=== PATIENT | female | born 1990 | race American Indian/Alaskan Native ===

== ENCOUNTER 2016-09-28 00:06 | Emergency (ER) | payer OTHER, BC ==
[2016-09-28 00:16] VITALS: BP 125/81
== END 2016-09-28 00:14 | disposition left against medical advice (07) ==
LOC: ED 00:06
DX: M54.5 Low back pain (principal); Z53.21 Procedure and treatment not carried out due to patient leaving prior to being seen by health care provider; V49.49XA Driver injured in collision with other motor vehicles in traffic accident, initial encounter

== ENCOUNTER 2018-12-29 15:59 | Emergency (ER) | payer BC ==
[2018-12-29] MEDS ORDERED: ATARAX PO ONE (16:26)
[2018-12-29] MEDS ORDERED: VISTARIL ONE (16:46)
[2018-12-29 17:50] LABS: Basophils # (Auto) 0.1 K/mm3 (0.0-0.1); Basophils % (Auto) 0.8 % (0.0-1.8); Eosinophils # (Auto) 0.3 K/mm3 (0.0-0.4); Eosinophils % (Auto) 3.9 % (0.0-4.3); Hematocrit 38.6 % (30.3-42.9); Hemoglobin 13.2 gm/dl (10.1-14.3); Lymphocytes # (Auto) 1.5 K/mm3 (1.2-5.4); Lymphocytes % (Auto) 21.1 % (13.4-35.0); Mean Corpuscular HGB Conc 34 % (30-34); Mean Corpuscular Volume 92 fl (79-97); Monocytes # (Auto) 0.6 K/mm3 (0.0-0.8); Monocytes % (Auto) 8.4 % (0.0-7.3); Platelet Count 314 K/mm3 (140-440); Red Blood Count 4.19 M/mm3 (3.65-5.03); Red Cell Distribution Width 12.4 % (13.2-15.2)
[2018-12-29 18:16] LABS: Alanine Aminotransferase 25 units/L (7-56); Albumin 4.6 g/dL (3.9-5); BUN/Creatinine Ratio 21; Blood Urea Nitrogen 15 mg/dL (7-17); Calcium 9.7 mg/dL (8.4-10.2); Hemolysis Index 4
[2018-12-29 19:32] LABS: Amphetamine Screen,Urine PRESUMPTIVE NEGATIVE; Benzodiazepines Screen,Urine PRESUMPTIVE NEGATIVE; Cocaine Screen,Urine PRESUMPTIVE NEGATIVE; Methadone Screen,Urine PRESUMPTIVE NEGATIVE; Opiate Screen,Urine PRESUMPTIVE NEGATIVE
[2018-12-29 19:58] LABS: Cannabinoid Screen,Urine PRESUMPTIVE POSITIVE
--- NOTE | 2018-12-29 21:19 | Emergency Department Report ---
HPI - General Chief Complaint: Anxiety Time Seen by Provider: 12/29/18 16:24 - HPI HPI: 28-year-old female presents to the emergency department with complaint of anxiety and a panic attack. The patient says that this has been happening just about every 2 weeks. She says that she has been anxious about "stress." The patient was at work and says that she was unable to calm herself down so she just walked out of work and drove herself to the emergency department to be seen. She did not take anything for her symptoms prior to arrival. There is some mention, through triage, that the patient's anxiety was so bad that she had some suicidal ideations earlier in the day but also mentioned that it had resolved and she denies any current suicidal ideations. She denies any homicidal ideations or any hallucinations. She does not have a primary care physician or any psychiatrist or therapist but says "I am looking for one." ED Past Medical Hx - Past Medical History Previous Medical History?: No - Surgical History Past Surgical History?: No - Social History Smoking Status: Never Smoker Substance Use Type: None - Medications Home Medications: Home Medications Medication Instructions Recorded Confirmed Last Taken Type Acetaminophen/Codeine 1 tab PO Q6H PRN #20 tab 02/15/14 Unknown Rx [Acetaminophen-Codeine #3 TAB] Cyclobenzaprine [Flexeril 10 MG 10 mg PO TID PRN #20 tablet 02/15/14 Unknown Rx TAB] Naproxen [Naprosyn] 500 mg PO BID #30 tablet 02/15/14 Unknown Rx ALPRAZolam [Xanax TAB] 0.5 mg PO BID PRN #6 tab 12/29/18 Unknown Rx ED Review of Systems ROS: Stated complaint: ANXIETY Other details as noted in HPI Comment: All other systems reviewed and negative Constitutional: denies: chills, fever Respiratory: denies: cough, shortness of breath Cardiovascular: denies: chest pain, palpitations Gastrointestinal: denies: abdominal pain, vomiting Neurological: denies: headache, weakness Psychiatric: anxiety. denies: auditory hallucinations, visual hallucinations, homicidal thoughts, suicidal thoughts Physical Exam - Physical Exam Vital Signs: Vital Signs 12/29/18 16:40 Temperature 98.1 F Pulse Rate 104 H Respiratory 20 Rate Blood Pressure 129/96 O2 Sat by Pulse 100 Oximetry Physical Exam: GENERAL: The patient is well-developed well-nourished. HENT: Normocephalic. Atraumatic. Patient has moist mucous membranes. EYES: Extraocular motions are intact. NECK: Supple. Trachea is midline. CHEST/LUNGS: Clear to auscultation. There is no respiratory distress noted. HEART/CARDIOVASCULAR: Regular. There is no tachycardia. There is no murmur. ABDOMEN: There is no abdominal distention. SKIN: Skin is warm and dry. NEURO: The patient is awake, alert, and oriented. The patient is cooperative. The patient has no focal neurologic deficits. The patient has normal speech. MUSCULOSKELETAL: There is no tenderness or deformity. There is no evidence of acute injury. PSYCH: Patient is calm and appropriate. ED Course Vital Signs 12/29/18 16:40 Temperature 98.1 F Pulse Rate 104 H Respiratory 20 Rate Blood Pressure 129/96 O2 Sat by Pulse 100 Oximetry ED Medical Decision Making - Lab Data Result diagrams: 12/29/18 17:20 12/29/18 17:20 - Medical Decision Making This patient presents to the emergency department with some anxiety and a previo us panic attack that brought her into the emergency department. At time of my examination she is calm and appropriate. Patient says that she was feeling anxious about some nonspecific stressors in her life. She denies any suicidal or homicidal ideations or any hallucinations. It sounds like the patient was very concerned about the previous panic attack that she was not able to get herself out of without coming into the emergency department. She says that this began happening about every 2 weeks for the past few months. The patient was seen by the psychiatric rn advice who agrees with my assessment that the patient does not appear to meet criteria to be made a 1013 or require involuntary inpatient psychiatric admission. However the patient will definitely benefit from some outpatient referrals for psychiatry or psychology. I have given the patient a prescription for a very small amount of low dose Xanax to take if she starts having some increased anxiety before and can get to a panic attack. However the patient has any worsening of her symptoms, thoughts of harming herself or others, then the patient will need to call 911 or get back to the emergency Department immediately. The patient understands and agrees to the plan. Vital signs stable throughout her ED course. - Differential Diagnosis anxiety, panic disorder, depression Critical Care Time: No Critical care attestation.: If time is entered above; I have spent that time in minutes in the direct care of this critically ill patient, excluding procedure time. ED Disposition Clinical Impression: Anxiety, Panic attack Disposition: DC-01 TO HOME OR SELFCARE Is pt being admited?: No Condition: Stable Instructions: Anxiety (ED) Additional Instructions: Please follow up with the [facility] or any psychiatrist or psychologist within the next few days. Return to the emergency Department with any worsening of her symptoms or any acute distress. I have given him a prescription for a very small amount of low dose Xanax to take to treat your anxiety. This medication can be sedating and therefore should not be taken prior to driving, working, being responsible for children, it cannot be mixed with alcohol of any quantity. Prescriptions: ALPRAZolam [Xanax TAB] 0.5 mg PO BID PRN #6 tab PRN Reason: Anxiety Referrals: [facility] [Outside] - [place] Forms: Work/School Release Form(ED) Time of Disposition: 21:22
[2018-12-29 22:08] VITALS: BP 113/85
== END 2018-12-29 22:07 | disposition home or self-care (01) ==
LOC: ED 15:59
DX: F41.0 Panic disorder [episodic paroxysmal anxiety] (principal); Z91.010 Allergy to peanuts; Z91.013 Allergy to seafood; Z79.899 Other long term (current) drug therapy
CPT/HCPCS: 36415; 80053; 80307; 85025; 99284; Q0177

== ENCOUNTER 2019-04-25 17:15 | Emergency (ER) | payer BC ==
[2019-04-25] MEDS ORDERED: TETANUS,DIPH,PERTUSS(ACELL) VACCINE 0.5 ML SYRINGE IM ONE (17:19)
--- NOTE | 2019-04-25 17:21 | Event Note ---
ED Screening Note Date of service: 04/25/19 Time: 17:19 ED Screening Note: 28 y/o female comes in for right index laceration just prior to arrival. This initial assessment/diagnostic orders/clinical plan/treatment(s) is/are subject to change based on patients health status, clinical progression and re- assessment by fellow clinical providers in the ED. Further treatment and workup at subsequent clinical providers discretion. Patient/guardian urged not to elope from the ED as their condition may be serious if not clinically assessed and managed. Initial orders include: Boostix
[2019-04-25 17:22] VITALS: BP 126/62
[2019-04-25] MEDS ORDERED: LIDOCAINE-MPF (1%) 10 MG/1 ML VIAL 5 ML INFILTRATI ONE (18:23)
[2019-04-25] MEDS ORDERED: IBUPROFEN 600 MG TAB PO ONE (18:23)
[2019-04-25] MEDS ORDERED: LORazepam 1 MG TAB PO ONE (19:28)
[2019-04-25] MEDS ORDERED: LORazepam 1 MG TAB ONE (19:29)
--- NOTE | 2019-04-25 21:00 | Emergency Department Report ---
- General Chief Complaint: Wound/Laceration Stated Complaint: R FINGER LACERATION Time Seen by Provider: 04/25/19 17:19 Source: patient Mode of arrival: Ambulatory Limitations: No Limitations - History of Present Illness Initial Comments: Patient is a 28-year-old -[place] female with no past medical history who presents to the ED with painful bleeding right index finger laceration after she accidentally cut right index finger when scuffling over the jewelry with her girlfriend about 2 hours. Patient states that the bleeding has not been well controlled. Patient admits to the fact that she has not had a tetanus vaccination. Patient denies numbness or tingling or weakness of the right hand right index finger. -: Sudden, hour(s) (2) Location: other (right index finger) Extremity Location: Right: Hand (right index finger laceration) Place: home Patient Tetanus UTD: No Context: accidental Associated Symptoms: pain. denies: loss of feeling/numbness, suspect foreign body present, unable to move injured part, weakness followed by dizziness, nausea/vomiting, fever - Related Data Previous Rx's Medication Instructions Recorded Last Taken Type Acetaminophen/Codeine 1 tab PO Q6H PRN #20 tab 02/15/14 Unknown Rx [Acetaminophen-Codeine #3 TAB] Cyclobenzaprine [Flexeril 10 MG 10 mg PO TID PRN #20 tablet 02/15/14 Unknown Rx TAB] Naproxen [Naprosyn] 500 mg PO BID #30 tablet 02/15/14 Unknown Rx ALPRAZolam [Xanax TAB] 0.5 mg PO BID PRN #6 tab 12/29/18 Unknown Rx Ibuprofen [Motrin] 800 mg PO Q8HR PRN #24 tablet 04/25/19 Unknown Rx Sulfamethoxazole/Trimethoprim 1 each PO Q12H #20 tablet 04/25/19 Unknown Rx [Bactrim DS TAB] Allergies Allergy/AdvReac Type Severity Reaction Status Date / Time cashew nut Allergy Swelling Verified 04/25/19 17:16 Fish Containing Products Allergy Swelling Verified 04/25/19 17:16 ED Review of Systems ROS: Stated complaint: R FINGER LACERATION Other details as noted in HPI Constitutional: denies: chills, fever Eyes: denies: eye pain, eye discharge, vision change ENT: denies: ear pain, throat pain Respiratory: denies: cough, shortness of breath, wheezing Cardiovascular: denies: chest pain, palpitations Endocrine: no symptoms reported Gastrointestinal: denies: abdominal pain, nausea, diarrhea Genitourinary: denies: urgency, dysuria, discharge Musculoskeletal: arthralgia (painful right index finger due to a bleeding laceration on the palmar side). denies: back pain, joint swelling Skin: other (bleeding right index finger laceration with pain). denies: rash, lesions Neurological: denies: headache, weakness, paresthesias Psychiatric: denies: anxiety, depression Hematological/Lymphatic: denies: easy bleeding, easy bruising ED Past Medical Hx - Past Medical History Previous Medical History?: No - Surgical History Past Surgical History?: No - Social History Smoking Status: Never Smoker Substance Use Type: None - Medications Home Medications: Home Medications Medication Instructions Recorded Confirmed Last Taken Type Acetaminophen/Codeine 1 tab PO Q6H PRN #20 tab 02/15/14 Unknown Rx [Acetaminophen-Codeine #3 TAB] Cyclobenzaprine [Flexeril 10 MG 10 mg PO TID PRN #20 tablet 02/15/14 Unknown Rx TAB] Naproxen [Naprosyn] 500 mg PO BID #30 tablet 02/15/14 Unknown Rx ALPRAZolam [Xanax TAB] 0.5 mg PO BID PRN #6 tab 12/29/18 Unknown Rx Ibuprofen [Motrin] 800 mg PO Q8HR PRN #24 tablet 04/25/19 Unknown Rx Sulfamethoxazole/Trimethoprim 1 each PO Q12H #20 tablet 04/25/19 Unknown Rx [Bactrim DS TAB] ED Physical Exam - General Limitations: No Limitations General appearance: alert, in no apparent distress - Head Head exam: Present: atraumatic, normocephalic, normal inspection - Eye Eye exam: Present: normal appearance, PERRL, EOMI Pupils: Present: normal accommodation - ENT ENT exam: Present: normal exam, normal orophraynx, mucous membranes moist, TM's normal bilaterally, normal external ear exam - Neck Neck exam: Present: normal inspection, full ROM - Respiratory Respiratory exam: Present: normal lung sounds bilaterally. Absent: respiratory distress, wheezes, rales, rhonchi, chest wall tenderness, accessory muscle use, decreased breath sounds - Cardiovascular Cardiovascular Exam: Present: regular rate, normal rhythm, normal heart sounds. Absent: systolic murmur, diastolic murmur, rubs, gallop - GI/Abdominal GI/Abdominal exam: Present: soft, normal bowel sounds. Absent: tenderness, guarding, rebound, hyperactive bowel sounds - Extremities Exam Extremities exam: Present: normal inspection, full ROM, tenderness (palpable tender right index finger bleeding 3 cm laceration), normal capillary refill. Absent: pedal edema, joint swelling - Back Exam Back exam: Present: normal inspection, full ROM. Absent: CVA tenderness (L), muscle spasm, paraspinal tenderness - Neurological Exam Neurological exam: Present: alert, oriented X3, CN II-XII intact, normal gait, reflexes normal - Psychiatric Psychiatric exam: Present: normal affect, normal mood - Skin Skin exam: Present: warm, dry, intact, normal color, other (Bleeding 3 cm laceration on right index finger). Absent: rash ED Course Vital Signs 04/25/19 04/25/19 17:21 18:29 Temperature 98.3 F Pulse Rate 88 Respiratory 18 18 Rate Blood Pressure 126/62 O2 Sat by Pulse 99 Oximetry - Laceration /Wound Repair Right Palm Finger Wound Location: upper extremity (RIGHT INDEX FINGER LACERATION ON PALMAR SIDE) Wound Length (cm): 3 Wound's Depth, Shape: superficial, irregular Wound Explored: contaminated Irrigated w/ Saline (ccs): 50 Betadine Prep?: Yes Anesthesia: 1% Lidocaine Volume Anesthetic (ccs): 3 Wound Debrided: extensive Wound Repaired With: sutures Suture Size/Type: 4:0, proline Number of Sutures: 7 Layer Closure?: No Sterile Dressing Applied?: Yes Progress: Patient alert to the procedure well and was discharged home on pain medication and antibiotics and advised to return to the ED immediately if symptoms get worse. Otherwise return to the ED in 12-14 days for suture removal. ED Medical Decision Making - Medical Decision Making This is a 28-year-old female who presented to the ED with bleeding painful right index finger laceration. In the ED: Patient is alert and oriented 3 and is not in distress. Patient was treated for pain in the ED and also received tetanus booster vaccination. The right index finger laceration was cleaned thoroughly and sutured protocol. Patient tolerated the procedure well. The wound was dressed appropriately. The patient discharged home on antibiotics and pain medications and advised to return to the ED immediately if symptoms get worse, otherwise return to the ED in 12-14 days for suture removal. - Differential Diagnosis FINGER LACERATION; ABRASIONS; PUNCTURE WOUND Critical care attestation.: If time is entered above; I have spent that time in minutes in the direct care of this critically ill patient, excluding procedure time. ED Disposition Clinical Impression: Laceration of right index finger w/o foreign body w/o damage to nail Qualifiers: Encounter type: initial encounter Qualified Code(s): S61.210A - Laceration without foreign body of right index finger without damage to nail, initial encounter Disposition: TO HOME OR SELFCARE Is pt being admited?: No Does the pt Need Aspirin: No Condition: Stable Instructions: Laceration (ED), Suture Care (ED) Additional Instructions: Take medications with food, drink plenty of fluids and follow-up with your primary care physician in 7-10 days for reevaluation. Return to the ED immediately if symptoms get worse. Otherwise return to the ED or to primary care physician in 12-14 days for suture removal. Prescriptions: Sulfamethoxazole/Trimethoprim [Bactrim DS TAB] 1 each PO Q12H #20 tablet Ibuprofen [Motrin] 800 mg PO Q8HR PRN #24 tablet PRN Reason: Pain , Severe (7-10) Referrals: PRIMARY CARE, [Primary Care Provider] - 3-5 Days Time of Disposition: 20:59 Print Language: ALBANIAN
== END 2019-04-25 21:06 | disposition home or self-care (01) ==
LOC: ED 17:15
DX: S61.210A Laceration without foreign body of right index finger without damage to nail, initial encounter (principal); Z91.018 Allergy to other foods; Z91.013 Allergy to seafood; W22.8XXA Striking against or struck by other objects, initial encounter; Y93.89 Activity, other specified; Y92.009 Unspecified place in unspecified non-institutional (private) residence as the place of occurrence of the external cause; Y99.8 Other external cause status
CPT/HCPCS: 90471; 90715

== ENCOUNTER 2019-05-10 23:27 | Emergency (ER) | payer BC ==
[2019-05-11 04:22] VITALS: BP 135/83
== END 2019-05-11 20:18 | disposition left against medical advice (07) ==
LOC: ED 23:27
DX: Z48.02 Encounter for removal of sutures (principal); Z53.21 Procedure and treatment not carried out due to patient leaving prior to being seen by health care provider

== ENCOUNTER 2020-09-04 15:06 | Emergency (ER) | payer BC, MEDICAID ==
--- NOTE | 2020-09-04 15:42 | Emergency Department Report ---
ED General Adult HPI - General Chief complaint: Laceration/Recheck/Suture Stated complaint: SUTURE REMOVAL Time Seen by Provider: 09/04/20 15:40 Source: patient Mode of arrival: Ambulatory Limitations: No Limitations - History of Present Illness Initial comments: 29-year-old -[place] female patient presents for suture removal today. Patient states she had the sutures placed at [facility] approximately 9 days ago. She denies any pain, drainage from wound, redness, or swelling. Severity scale (0 -10): 0 Associated Symptoms: denies other symptoms - Related Data Previous Rx's Medication Instructions Recorded Last Taken Type Acetaminophen/Codeine 1 tab PO Q6H PRN #20 tab 02/15/14 Unknown Rx [Acetaminophen-Codeine #3 TAB] Cyclobenzaprine [Flexeril 10 MG 10 mg PO TID PRN #20 tablet 02/15/14 Unknown Rx TAB] Naproxen [Naprosyn] 500 mg PO BID #30 tablet 02/15/14 Unknown Rx ALPRAZolam [Xanax TAB] 0.5 mg PO BID PRN #6 tab 12/29/18 Unknown Rx Ibuprofen [Motrin] 800 mg PO Q8HR PRN #24 tablet 04/25/19 Unknown Rx Sulfamethoxazole/Trimethoprim 1 each PO Q12H #20 tablet 04/25/19 Unknown Rx [Bactrim DS TAB] Amoxicillin/Potassium Clav 1 each PO Q12H #20 tablet 11/24/19 Unknown Rx [Augmentin 875-125 Tablet] Butalb/Acetamin/Caff 50-325-40 1 - 2 tab PO Q6HR PRN #15 tab 11/24/19 Unknown Rx [Fioricet 50-325-40] Ibuprofen [Motrin] 600 mg PO Q8H PRN #24 tablet 11/24/19 Unknown Rx Ondansetron [Zofran Odt] 4 mg PO Q6HR PRN #20 tab.rapdis 11/24/19 Unknown Rx Allergies Allergy/AdvReac Type Severity Reaction Status Date / Time cashew nut Allergy Swelling Verified 11/24/19 14:51 Fish Containing Products Allergy Swelling Verified 11/24/19 14:51 ED Review of Systems ROS: Stated complaint: SUTURE REMOVAL Other details as noted in HPI Constitutional: denies: chills, diaphoresis, fever, malaise, weakness Genitourinary: denies: discharge Musculoskeletal: denies: arthralgia Skin: denies: change in color Neurological: denies: numbness, paresthesias ED Past Medical Hx - Past Medical History Previous Medical History?: No - Surgical History Past Surgical History?: No - Social History Smoking Status: Never Smoker Substance Use Type: Marijuana - Medications Home Medications: Home Medications Medication Instructions Recorded Confirmed Last Taken Type Acetaminophen/Codeine 1 tab PO Q6H PRN #20 tab 02/15/14 Unknown Rx [Acetaminophen-Codeine #3 TAB] Cyclobenzaprine [Flexeril 10 MG 10 mg PO TID PRN #20 tablet 02/15/14 Unknown Rx TAB] Naproxen [Naprosyn] 500 mg PO BID #30 tablet 02/15/14 Unknown Rx ALPRAZolam [Xanax TAB] 0.5 mg PO BID PRN #6 tab 12/29/18 Unknown Rx Ibuprofen [Motrin] 800 mg PO Q8HR PRN #24 tablet 04/25/19 Unknown Rx Sulfamethoxazole/Trimethoprim 1 each PO Q12H #20 tablet 04/25/19 Unknown Rx [Bactrim DS TAB] Amoxicillin/Potassium Clav 1 each PO Q12H #20 tablet 11/24/19 Unknown Rx [Augmentin 875-125 Tablet] Butalb/Acetamin/Caff 50-325-40 1 - 2 tab PO Q6HR PRN #15 tab 11/24/19 Unknown Rx [Fioricet 50-325-40] Ibuprofen [Motrin] 600 mg PO Q8H PRN #24 tablet 11/24/19 Unknown Rx Ondansetron [Zofran Odt] 4 mg PO Q6HR PRN #20 tab.rapdis 11/24/19 Unknown Rx ED Physical Exam - General Limitations: No Limitations General appearance: alert, in no apparent distress - Head Head exam: Present: atraumatic, normocephalic - Eye Eye exam: Present: normal appearance - Respiratory Respiratory exam: Absent: respiratory distress - Cardiovascular Cardiovascular Exam: Present: regular rate - Neurological Exam Neurological exam: Present: alert, oriented X3 - Psychiatric Psychiatric exam: Present: normal affect, normal mood - Skin Skin exam: Present: warm, dry, intact, normal color, other (Healing laceration noted to left inner forearm with [address] no surrounding erythema, wound dehiscence, or drainage noted; wound is nontender to palpation). Absent: rash - Procedure Description Procedures done: 9 simple sutures removed from left forearm without difficulty. No wound dehiscence or bleeding noted. Patient tolerated procedure well without any immediate complications. ED Medical Decision Making - Medical Decision Making 29-year-old -[place]ones[place] female patient presents for suture removal today. Patient states she had the sutures placed at [facility] approximately 9 days ago. She denies any pain, drainage from wound, redness, or swelling. Sutures removed successfully without any immediate complications. Discussed continued wound care and strict return precautions in detail with patient who verbalizes understanding. She is to follow-up with her PCP as needed. Patient is well-appearing, her vitals are normal, she is stable for discharge home. Critical care attestation.: If time is entered above; I have spent that time in minutes in the direct care of this critically ill patient, excluding procedure time. ED Disposition Clinical Impression: Visit for suture removal Disposition: DC-01 TO HOME OR SELFCARE Is pt being admited?: No Condition: Stable Instructions: Wound Closure Removal, Care After Referrals: PRIMARY CARE, [Primary Care Provider] - 3-5 Days
== END 2020-09-04 16:30 | disposition home or self-care (01) ==
LOC: ED 15:06
DX: S51.812D Laceration without foreign body of left forearm, subsequent encounter (principal); Z48.02 Encounter for removal of sutures; F12.10 Cannabis abuse, uncomplicated; Z79.1 Long term (current) use of non-steroidal anti-inflammatories (NSAID); Z79.2 Long term (current) use of antibiotics; Z79.899 Other long term (current) drug therapy; Z91.013 Allergy to seafood; Z91.018 Allergy to other foods; X58.XXXD Exposure to other specified factors, subsequent encounter
CPT/HCPCS: 99282

== ENCOUNTER 2020-09-18 15:57 | Emergency (ER) | payer MEDICAID ==
[2020-09-18 16:07] VITALS: BP 132/93
[2020-09-18] MEDS ORDERED: ACETAMINOPHEN 500 MG TAB PO ONE (16:25)
--- NOTE | 2020-09-18 16:29 | Event Note ---
ED Screening Note Date of service: 09/18/20 Time: 16:26 ED Screening Note: 29-year-old -[place] female presents to the emergency room reporting she has several areas of bumps on her right forearm left leg and behind her neck. Patient thinks is allergic reaction to her dupixent and that she had given her injection 2 weeks ago for her eczema. Patient states that the symptoms started 1 week ago. Patient denies any nausea vomiting no fever but had chills. It was noted that patient had elevated temperature of 102.2 in triage. Patient's last menstrual period 09/03/2020. 2 para 2. This initial assessment/diagnostic orders/clinical plan/treatment(s) is/are subject to change based on patients health status, clinical progression and re- assessment by fellow clinical providers in the ED. Further treatment and workup at subsequent clinical providers discretion. Patient/guardian urged not to elope from the ED as their condition may be serious if not clinically assessed and managed. Initial orders include: CBC CMP acetaminophen 1 g ordered for patient.
[2020-09-18 17:05] LABS: Basophils % (Auto) 0.7 % (0.0-1.8); Eosinophils # (Auto) 0.1 K/mm3 (0.0-0.4); Eosinophils % (Auto) 0.7 % (0.0-4.3); Hematocrit 28.6 % (30.3-42.9); Hemoglobin 9.2 gm/dl (10.1-14.3); Lymphocytes # (Auto) 0.9 K/mm3 (1.2-5.4); Lymphocytes % (Auto) 11.4 % (13.4-35.0); Mean Corpuscular HGB Conc 32 % (30-34); Mean Corpuscular Volume 73 fl (79-97); Monocytes # (Auto) 0.6 K/mm3 (0.0-0.8); Monocytes % (Auto) 7.7 % (0.0-7.3); Platelet Count 449 K/mm3 (140-440); Red Blood Count 3.93 M/mm3 (3.65-5.03); Red Cell Distribution Width 18.3 % (13.2-15.2)
[2020-09-18 17:08] LABS: Alanine Aminotransferase 12 units/L (7-56); Albumin 3.6 g/dL (3.9-5); Blood Urea Nitrogen 7 mg/dL (7-17); Calcium 8.6 mg/dL (8.4-10.2); Hemolysis Index 3
[2020-09-18 17:09] LABS: BUN/Creatinine Ratio 10
[2020-09-18] MEDS ORDERED: dexAMETHasone 20 MG/5 ML VIAL IM ONE (18:29)
--- NOTE | 2020-09-18 18:34 | Emergency Department Report ---
ED Rash HPI - HPI Chief Complaint: Skin Rash Stated Complaint: ALLERGIC REACTION Time Seen by Provider: 09/18/20 18:28 Duration: 3 weeks Location: Upper Extremities Suspected Cause: Medication Rash Symptoms: Yes Fever, No Itching, No Facial Swelling, No Tongue/Oral Swell ing, No Breathing Difficulties, No Choking Sensation, No Wheezing/Dyspnea, No Peeling, No Blistering, No Lightheaded, No Malaise, No Myalgias Severity: moderate Other History: this is a 29-year-old female with a history of eczema who currently started taking Dupixent for her atopic dermatitis. Patient states that she began taking it 3 Months ago. Patient states that she has noticed the red painful mass 2-3 times prior. Did resolve on its own. Patient states this time around she noticed more lesions and it is bigger and is not resolving. ED Review of Systems ROS: Stated complaint: ALLERGIC REACTION Other details as noted in HPI Comment: All other systems reviewed and negative ED Past Medical Hx - Past Medical History Additional medical history: eczema - Surgical History Past Surgical History?: No - Social History Smoking Status: Never Smoker Substance Use Type: Marijuana - Medications Home Medications: Home Medications Medication Instructions Recorded Confirmed Last Taken Type Acetaminophen/Codeine 1 tab PO Q6H PRN #20 tab 02/15/14 Unknown Rx [Acetaminophen-Codeine #3 TAB] Cyclobenzaprine [Flexeril 10 MG 10 mg PO TID PRN #20 tablet 02/15/14 Unknown Rx TAB] Naproxen [Naprosyn] 500 mg PO BID #30 tablet 02/15/14 Unknown Rx ALPRAZolam [Xanax TAB] 0.5 mg PO BID PRN #6 tab 12/29/18 Unknown Rx Sulfamethoxazole/Trimethoprim 1 each PO Q12H #20 tablet 04/25/19 Unknown Rx [Bactrim DS TAB] Amoxicillin/Potassium Clav 1 each PO Q12H #20 tablet 11/24/19 Unknown Rx [Augmentin 875-125 Tablet] Butalb/Acetamin/Caff 50-325-40 1 - 2 tab PO Q6HR PRN #15 tab 11/24/19 Unknown Rx [Fioricet 50-325-40] Ibuprofen [Motrin] 600 mg PO Q8H PRN #24 tablet 11/24/19 Unknown Rx Ondansetron [Zofran Odt] 4 mg PO Q6HR PRN #20 tab.rapdis 11/24/19 Unknown Rx Ibuprofen [Motrin 800 MG tab] 800 mg PO Q8HR PRN #40 tablet 09/18/20 Unknown Rx cephALEXin [Keflex] 500 mg PO Q12HR #14 cap 09/18/20 Unknown Rx hydrOXYzine HCL [Atarax] 25 mg PO Q12HR PRN #10 tablet 09/18/20 Unknown Rx predniSONE [Deltasone] 20 mg PO QDAY #5 tab 09/18/20 Unknown Rx Rash Exam - Exam General: Vital signs noted. No distress. Alert and acting appropriately. HEENT: No Periorbital Edema, No Conjuctival Injection, No Chemosis, No Perioral Edema, No Tongue Edema, No Uvular Edema, No Compromised Airway, No Drooling Lungs: Yes Good Air Exchange (Normal Breath Sounds), No Wheezes, No Ronchi, No Stridor, No Cough, No Labored Respirations, No Retractions, No Use of Accessory Muscles, No Other Abnormal Lung Sounds Heart: Yes Regular, No Murmur Skin: Yes Tenderness, Yes Erythema, Yes Other (There were 3 erythematous 1cm to 3 cm tender cellulitis lesions on the right lower arm.), No Urticarial Rash, No Maculopapular Rash, No Morbilliform rash, No Bulla(e), No Excoriations, No Weeping, No Edema, No Encrustations Other: Positive: Abdomen Normal, Neurologic Normal, Musculoskeletal Normal ED Course Vital Signs 09/18/20 16:03 Temperature 102.2 F H Pulse Rate 90 Respiratory 17 Rate Blood Pressure 132/93 [Left] O2 Sat by Pulse 100 Oximetry ED Medical Decision Making - Lab Data Result diagrams: 09/18/20 16:34 09/18/20 16:34 Laboratory Last Values WBC 7.5 K/mm3 (4.5-11.0) 09/18/20 16:34 RBC 3.93 M/mm3 (3.65-5.03) 09/18/20 16:34 Hgb 9.2 gm/dl (10.1-14.3) L 09/18/20 16:34 Hct 28.6 % (30.3-42.9) L 09/18/20 16:34 MCV 73 fl (79-97) L 09/18/20 16:34 MCH 23 pg (28-32) L 09/18/20 16:34 MCHC 32 % (30-34) 09/18/20 16:34 RDW 18.3 % (13.2-15.2) H 09/18/20 16:34 Plt Count 449 K/mm3 (140-440) H 09/18/20 16:34 Lymph % (Auto) 11.4 % (13.4-35.0) L 09/18/20 16:34 [place] % (Auto) 7.7 % (0.0-7.3) H 09/18/20 16:34 Eos % (Auto) 0.7 % (0.0-4.3) 09/18/20 16:34 Baso % (Auto) 0.7 % (0.0-1.8) 09/18/20 16:34 Lymph # (Auto) 0.9 K/mm3 (1.2-5.4) L 09/18/20 16:34 [place] # (Auto) 0.6 K/mm3 (0.0-0.8) 09/18/20 16:34 Eos # (Auto) 0.1 K/mm3 (0.0-0.4) 09/18/20 16:34 Baso # (Auto) 0.0 K/mm3 (0.0-0.1) 09/18/20 16:34 Seg Neutrophils % 79.5 % (40.0-70.0) H 09/18/20 16:34 Seg Neutrophils # 5.9 K/mm3 (1.8-7.7) 09/18/20 16:34 Sodium 134 mmol/L (137-145) L 09/18/20 16:34 Potassium 4.7 mmol/L (3.6-5.0) 09/18/20 16:34 Chloride 98.3 mmol/L (98-107) 09/18/20 16:34 Carbon Dioxide 25 mmol/L (22-30) 09/18/20 16:34 Anion Gap 15 mmol/L 09/18/20 16:34 BUN 7 mg/dL (7-17) 09/18/20 16:34 Creatinine 0.7 mg/dL (0.6-1.2) 09/18/20 16:34 Estimated GFR > 60 ml/min 09/18/20 16:34 BUN/Creatinine Ratio 10 % 09/18/20 16:34 Glucose 92 mg/dL (65-100) 09/18/20 16:34 Calcium 8.6 mg/dL (8.4-10.2) 09/18/20 16:34 Total Bilirubin 0.30 mg/dL (0.1-1.2) 09/18/20 16:34 AST 20 units/L (5-40) 09/18/20 16:34 ALT 12 units/L (7-56) 09/18/20 16:34 Alkaline Phosphatase 131 units/L (35-129) H 09/18/20 16:34 Total Protein 7.7 g/dL (6.3-8.2) 09/18/20 16:34 Albumin 3.6 g/dL (3.9-5) L 09/18/20 16:34 Albumin/Globulin Ratio 0.9 % 09/18/20 16:34 - Medical Decision Making 29-year-old who presented with very erythematous lesions on her right arm. Initially patient presented with fever. Fever reduced with 1 dose of Tylenol. Temperature at 99.1 F. Patient received Decadron in the ED. Discussed cessation of new medication and follow-up with her primary care physician. DVT was r/o as D-dimer was negative. Discussed all this findings with the patient. Discussed with patient if she has any worsening symptoms she will return to the ED. Patient was stable throughout ED stay she was in no acute distress no respiratory distress. Patient understand instructions and states that will follow-up Critical care attestation.: If time is entered above; I have spent that time in minutes in the direct care of this critically ill patient, excluding procedure time. ED Disposition Clinical Impression: Cellulitis of arm, right Disposition: DC-01 TO HOME OR SELFCARE Is pt being admited?: No Does the pt Need Aspirin: No Condition: Stable Instructions: Cellulitis, Adult, [id number] Additional Instructions: Make sure to follow up with the primary care physician as discussed. Take all your medications as you've been prescribed. If you have any worsening symptoms or develop new symptoms please return to ED immediately. Prescriptions: hydrOXYzine HCL [Atarax] 25 mg PO Q12HR PRN #10 tablet PRN Reason: Itching predniSONE [Deltasone] 20 mg PO QDAY #5 tab cephALEXin [Keflex] 500 mg PO Q12HR #14 cap Ibuprofen [Motrin 800 MG tab] 800 mg PO Q8HR PRN #40 tablet PRN Reason: Pain , Severe (7-10) Referrals: [facility] [Other] - 3-5 Days Forms: Work/School Release Form(ED) Time of Disposition: 18:43
== END 2020-09-18 18:53 | disposition home or self-care (01) ==
LOC: ED 15:57
DX: L03.113 Cellulitis of right upper limb (principal); F12.10 Cannabis abuse, uncomplicated; Z79.1 Long term (current) use of non-steroidal anti-inflammatories (NSAID); Z79.2 Long term (current) use of antibiotics; Z79.899 Other long term (current) drug therapy; Z91.013 Allergy to seafood; Z91.018 Allergy to other foods
CPT/HCPCS: 36415; 80053; 85025; 96372; 99283; J1100

== ENCOUNTER 2021-09-27 22:31 | Emergency (ER) | payer MEDICAID ==
[2021-09-28] MEDS ORDERED: IBUPROFEN 600 MG TAB PO ONE (04:21)
--- NOTE | 2021-09-28 04:29 | Emergency Department Report ---
ED General Adult HPI - General Chief complaint: Chest Pain Stated complaint: CHEST PAIN/RIGHT SIDE PAIN Source: patient Mode of arrival: Ambulatory Limitations: No Limitations - History of Present Illness Initial comments: Patient is a 30-year-old -[place] female with no past medical history presents to the ED with complaint of acute onset persistent right-sided chest w all pain after heavy lifting at work for the last 2 days. Patient states that she is unable to sleep because of persistent pain when she lays on her right side or when she palpates her chest wall. Patient denies fall, traumatic injury, shortness of breath, hemoptysis, cough, fever and chills, nausea and vomiting or headache, back pain, palpitations or fever and chills. MD Complaint: Right-sided chest wall pain after heavy lifting at work -: Sudden, days(s) (2) Location: chest (RIGHT SIDED CHEST PAIN) Radiation: non-radiation Severity scale (0 -10): 5 Quality: aching, sharp Consistency: constant Improves with: none Worsens with: movement, other (Palpation) Associated Symptoms: denies other symptoms, chest pain (Right-sided chest wall pain). denies: confusion, cough, diaphoresis, fever/chills, headaches, loss of appetite, malaise, nausea/vomiting, rash, shortness of breath, syncope, weakness Treatments Prior to Arrival: none - Related Data Previous Rx's Medication Instructions Recorded Last Taken Type Acetaminophen/Codeine 1 tab PO Q6H PRN #20 tab 02/15/14 Unknown Rx [Acetaminophen-Codeine #3 TAB] Naproxen [Naprosyn] 500 mg PO BID #30 tablet 02/15/14 Unknown Rx ALPRAZolam [Xanax TAB] 0.5 mg PO BID PRN #6 tab 12/29/18 Unknown Rx Sulfamethoxazole/Trimethoprim 1 each PO Q12H #20 tablet 04/25/19 Unknown Rx [Bactrim DS TAB] Amoxicillin/Potassium Clav 1 each PO Q12H #20 tablet 11/24/19 Unknown Rx [Augmentin 875-125 Tablet] Butalb/Acetamin/Caff 50-325-40 1 - 2 tab PO Q6HR PRN #15 tab 11/24/19 Unknown Rx [Fioricet 50-325-40] Ibuprofen [Motrin] 600 mg PO Q8H PRN #24 tablet 11/24/19 Unknown Rx Ondansetron [Zofran Odt] 4 mg PO Q6HR PRN #20 tab.rapdis 11/24/19 Unknown Rx cephALEXin [Keflex] 500 mg PO Q12HR #14 cap 09/18/20 Unknown Rx hydrOXYzine HCL [Atarax] 25 mg PO Q12HR PRN #10 tablet 09/18/20 Unknown Rx predniSONE [Deltasone] 20 mg PO QDAY #5 tab 09/18/20 Unknown Rx Cyclobenzaprine [Flexeril 10 MG 10 mg PO TID PRN #15 tablet 09/28/21 Unknown Rx TAB] Ibuprofen [Motrin 800 MG tab] 800 mg PO Q8HR PRN #30 tablet 09/28/21 Unknown Rx Allergies Allergy/AdvReac Type Severity Reaction Status Date / Time cashew nut Allergy Swelling Verified 11/24/19 14:51 Fish Containing Products Allergy Swelling Verified 11/24/19 14:51 ED Review of Systems ROS: Stated complaint: CHEST PAIN/RIGHT SIDE PAIN Other details as noted in HPI Constitutional: denies: chills, fever Eyes: denies: eye pain, eye discharge, vision change ENT: denies: ear pain, throat pain Respiratory: denies: cough, shortness of breath, wheezing Cardiovascular: chest pain (Right-sided chest wall pain). denies: palpitations Endocrine: no symptoms reported Gastrointestinal: denies: abdominal pain, nausea, diarrhea Genitourinary: denies: urgency, dysuria, discharge Musculoskeletal: denies: back pain, joint swelling, arthralgia Skin: denies: rash, lesions Neurological: denies: headache, weakness, paresthesias Psychiatric: denies: anxiety, depression Hematological/Lymphatic: denies: easy bleeding, easy bruising ED Past Medical Hx - Past Medical History Additional medical history: eczema - Social History Smoking Status: Never Smoker Substance Use Type: Marijuana - Medications Home Medications: Home Medications Medication Instructions Recorded Confirmed Last Taken Type Acetaminophen/Codeine 1 tab PO Q6H PRN #20 tab 02/15/14 Unknown Rx [Acetaminophen-Codeine #3 TAB] Naproxen [Naprosyn] 500 mg PO BID #30 tablet 02/15/14 Unknown Rx ALPRAZolam [Xanax TAB] 0.5 mg PO BID PRN #6 tab 12/29/18 Unknown Rx Sulfamethoxazole/Trimethoprim 1 each PO Q12H #20 tablet 04/25/19 Unknown Rx [Bactrim DS TAB] Amoxicillin/Potassium Clav 1 each PO Q12H #20 tablet 11/24/19 Unknown Rx [Augmentin 875-125 Tablet] Butalb/Acetamin/Caff 50-325-40 1 - 2 tab PO Q6HR PRN #15 tab 11/24/19 Unknown Rx [Fioricet 50-325-40] Ibuprofen [Motrin] 600 mg PO Q8H PRN #24 tablet 11/24/19 Unknown Rx Ondansetron [Zofran Odt] 4 mg PO Q6HR PRN #20 tab.rapdis 11/24/19 Unknown Rx cephALEXin [Keflex] 500 mg PO Q12HR #14 cap 09/18/20 Unknown Rx hydrOXYzine HCL [Atarax] 25 mg PO Q12HR PRN #10 tablet 09/18/20 Unknown Rx predniSONE [Deltasone] 20 mg PO QDAY #5 tab 09/18/20 Unknown Rx Cyclobenzaprine [Flexeril 10 MG 10 mg PO TID PRN #15 tablet 09/28/21 Unknown Rx TAB] Ibuprofen [Motrin 800 MG tab] 800 mg PO Q8HR PRN #30 tablet 09/28/21 Unknown Rx ED Physical Exam - General Limitations: No Limitations General appearance: alert, in no apparent distress - Head Head exam: Present: atraumatic, normocephalic, normal inspection - Eye Eye exam: Present: normal appearance, PERRL, EOMI Pupils: Present: normal accommodation - ENT ENT exam: Present: normal exam, normal orophraynx, mucous membranes moist, TM's normal bilaterally, normal external ear exam - Neck Neck exam: Present: normal inspection, full ROM. Absent: tenderness, lymphadenopathy - Respiratory Respiratory exam: Present: normal lung sounds bilaterally, chest wall tenderness (Palpable reproducible anterior right sided chest wall tenderness). Absent: respiratory distress, wheezes, rales, rhonchi, accessory muscle use, decreased breath sounds, prolonged expiratory - Cardiovascular Cardiovascular Exam: Present: regular rate, normal rhythm, normal heart sounds. Absent: systolic murmur, diastolic murmur, rubs, gallop - GI/Abdominal GI/Abdominal exam: Present: soft, normal bowel sounds. Absent: tenderness, guarding, rebound, hyperactive bowel sounds, hypoactive bowel sounds, organomegaly, mass - Extremities Exam Extremities exam: Present: normal inspection, full ROM, normal capillary refill. Absent: tenderness - Back Exam Back exam: Present: normal inspection, full ROM. Absent: tenderness, CVA tenderness (R), CVA tenderness (L), muscle spasm, paraspinal tenderness, verteb ral tenderness - Neurological Exam Neurological exam: Present: alert, oriented X3, CN II-XII intact, normal gait, reflexes normal - Psychiatric Psychiatric exam: Present: normal affect, normal mood, anxious - Skin Skin exam: Present: warm, dry, intact, normal color. Absent: rash ED Course Vital Signs 09/27/21 23:11 Temperature 98.9 F Pulse Rate 75 Respiratory 16 Rate Blood Pressure 159/109 O2 Sat by Pulse 97 Oximetry ED Medical Decision Making - EKG Data EKG shows normal: sinus rhythm Rate: normal - EKG Data Interpretation: normal EKG 09/28/21 04:29 EKG shows normal sinus rhythm with a ventricular rate of [address] or T wave abnormalities. - Medical Decision Making This is a 30-year-old -[place] female with no past medical history presents to the ED with complaint of acute onset persistent right-sided chest wall pain after heavy lifting at work for the last 2 days. Patient states that she is unable to sleep because of persistent pain when she lays on her right side or when she palpates her chest wall. In the ED, patient is alert and oriented x3 and is not in any distress. Patient is hemodynamically stable. Based on the history and physical exam findings, the patient symptoms are likely due to muscle strain of chest wall following heavy lifting at work. EKG shows normal sinus rhythm with a ventricular rate of [address] or T wave abnormalities. Patient's heart score is 1. Patient is PERC negative per Wells criteria. Patient was discharged home on medications for pain, mainly anti- inflammatory medications and advised to follow-up with her primary care physician in 7 to 10 days for reevaluation or return to the ED immediately if symptoms get worse. Critical care attestation.: If time is entered above; I have spent that time in minutes in the direct care of this critically ill patient, excluding procedure time. ED Disposition Clinical Impression: Muscle strain of anterior chest wall, Acute costochondritis Disposition: HOME / SELF CARE / HOMELESS Is pt being admited?: No Does the pt Need Aspirin: No Condition: Stable Instructions: Costochondritis, [id number], Muscle Strain, [id number] Additional Instructions: Your symptoms are likely due to muscle strain of chest wall following heavy lifting at work. Therefore take medication as needed with food, drink plenty of fluids and follow-up with your primary care physician in 7 to 10 days for reevaluation. Return to the ED immediately if symptoms get worse. Prescriptions: Cyclobenzaprine [Flexeril 10 MG TAB] 10 mg PO TID PRN #15 tablet PRN Reason: Muscle Spasm Ibuprofen [Motrin 800 MG tab] 800 mg PO Q8HR PRN #30 tablet PRN Reason: Pain , Severe (7-10) Referrals: [facility] [Provider Group] - 3-5 Days Forms: Work/School Release Form(ED) Time of Disposition: 04:30 Print Language: CAMBODIAN
[2021-09-28 06:27] VITALS: BP 217/127
--- NOTE | 2021-09-28 12:37 | Electrocardiograph Report ---
[facility] Test Date: 2021-09-27 Test Time: 23:15:33 Pat Name: JEANNIE VEGA Department: Room: Gender: F [employer] Operations Manager: ANUPAM : 1990 Requested By: SILVERIO PATEL Order Number: [id number] Reading MD: Jose Luis Rob Measurements Intervals [facility] Rate: 78 P: 44 DE: 173 QRS: 24 QRSD: 66 T: 34 QT: 357 QTc: 407 Interpretive Statements Sinus rhythm No previous ECG available for comparison Electronically Signed On 09-28-2021 12:37:03 EDT by Jose Luis Rob
== END 2021-09-28 06:50 | disposition home or self-care (01) ==
LOC: ED 22:31
DX: S29.011A Strain of muscle and tendon of front wall of thorax, initial encounter (principal); S21.101A Unspecified open wound of right front wall of thorax without penetration into thoracic cavity, initial encounter; X50.0XXA Overexertion from strenuous movement or load, initial encounter; Y93.89 Activity, other specified; Y92.89 Other specified places as the place of occurrence of the external cause; Y99.0 Civilian activity done for income or pay; M94.0 Chondrocostal junction syndrome [Tietze]; Z91.013 Allergy to seafood; Z91.018 Allergy to other foods
CPT/HCPCS: 93005; 99282